=== PATIENT | female | born 2000 | race Caucasian/White ===

== ENCOUNTER 2021-09-06 17:10 | Emergency (ER) | payer OTHER, SELFPAY ==
[2021-09-06 17:13] VITALS: BP 127/85; PULSE 117; RESP 14; TEMP 36.5; O2SAT 99
--- NOTE | 2021-09-06 17:49 | ED.SKABFB ---
HPI - Skin/Abscess/Foreign Bdy General Chief complaint: Skin/Abscess/Foreign Body Stated complaint: Infected Cyst Time Seen by Provider: 09/06/21 17:31 Source: patient and family History of Present Illness HPI narrative: 20 y/o female presents to the ER for a cyst under her left jaw. She has had it for 2 years. Her mother thought it looked more pink than it had previously so she was worried that it may be infected. mother says that it has gotten larger in size over the past 2 years. She is schedule with dermatology in October for this problem. It is not painful. Related Data Home Medications Medication Instructions Recorded Confirmed No Home Medications 09/06/21 09/06/21 Allergies Allergy/AdvReac Type Severity Reaction Status Date / Time No Known Allergies Allergy Verified 09/06/21 17:40 Review of Systems Constitutional: Constitutional: Denies chills and Denies fever(s) ENT: Reports system reviewed and no additional complaints, except as documented Cardiovascular: Cardiovascular: Denies chest pain Respiratory: Respiratory: Reports as per HPI Gastrointestinal: Gastrointestinal: Reports no additional gastrointestinal complaints Musculoskeletal: Musculoskeletal: Reports no additional musculoskeletal complaints and Denies arthralgias Integumentary/Breasts: Skin/Breast: Reports system reviewed and no additional complaints, except as docu Neurologic: Denies headache(s) Endocrine: Endocrine: Denies fatigue Hematologic/Lymphatic: Hematologic/Lymphatic: Denies easy bleeding and Denies easy bruising Exam Const: General: no acute distress and alert Orientation/consciousness: patient oriented x3 HENMT: Head: normal to inspection Eyes: Conjunctivae: conjunctivae normal Pupils: Equal, round and reactive pupils present Neck: Neck: normal visual inspection Chest: Chest palpation & inspection: normal inspection of the chest Resp: Effort & Inspection: normal respiratory effort Cardio: Rate: regular rate Rhythm: regular rhythm : General: Yes no CVA tenderness Skin: General skin exam: normal color Other: 2 cm palpable lesion under the left jaw, soft, either a cyst or lipoma, no apparent inflammation or infection Neuro: General: patient oriented x3, no meningeal signs and no focal motor deficits Extrem: General: normal to inspection Psych: Mental Status: mental status grossly normal Course Vital Signs Vital signs: Vital Signs Temperature 36.5 C 09/06/21 17:13 Pulse Rate 117 H 09/06/21 17:13 Respiratory Rate 14 09/06/21 17:13 Blood Pressure 127/85 09/06/21 17:13 Pulse Oximetry 99 09/06/21 17:13 Temperature 36.5 C 09/06/21 17:13 Pulse Rate 117 H 09/06/21 17:13 Respiratory Rate 14 09/06/21 17:13 Blood Pressure 127/85 09/06/21 17:13 Pulse Oximetry 99 09/06/21 17:13 MDM - Skin/Abscess/Foreign Bdy Differential Diagnosis Differential diagnosis: Likely abscess of skin or subcutaneous tissue and other (lipoma, cyst) Discharge Plan Discharge Clinical Impression: Subepidermal cysts Patient Disposition: Home, Self-Care Condition: Stable Instructions: Antibiotic Form, Cyst (ED) Additional Instructions: Follow up with dermatology for excision of lesion. Prescriptions: No Action No Home Medications RF: 0 Follow-up/Referrals: PHYSICIAN,PREDATOR CONTR[facility]APPER [Primary Care Provider] - Time of Disposition: 18:03
== END 2021-09-06 18:42 | disposition home or self-care (01) ==
LOC: ANHED 18:07
PROVIDERS: Emergency Provider Nurse Practitioner Family; PCP Internal Medicine
DX: L72.0 Epidermal cyst (principal)
CPT/HCPCS: 99281